=== PATIENT | female | born 1980 | race Caucasian/White ===

== ENCOUNTER 2016-07-30 14:19 | Emergency (ER) | payer OTHER ==
--- NOTE | 2016-07-30 16:02 | Emergency Department Report ---
Entered by JOHNIE MCFARLANE, acting as scribe for ELY RIVERA NP. Chief Complaint: Nausea/Vomiting/Diarrhea Stated Complaint: ABD PAIN/CRAMPS/VOMITING BLOOD Time Seen by Provider: 07/30/16 15:20 - HPI History of Present Illness: 36 y/o female presents c/o N/V/D that started yesterday. Sx include abd pain, hematemesis and cramping. She has Sx during menstrual cycle but Sx are worse this episode. LMP- currently on. no neuro or focal deficits NAD VSS Ambulatory states just about every month this is what happens - ROS Review of Systems: as noted in HPI - Exam Vital Signs: Vital Signs 07/30/16 15:13 Temperature 97.8 F Pulse Rate 61 Respiratory 20 Rate Blood Pressure 129/78 O2 Sat by Pulse 100 Oximetry Physical Exam: as noted in HPI MSE screening note: Focused history and physical exam performed. Due to findings the following was ordered: ED Disposition for MSE Condition: Stable This documentation as recorded by the scribe,JOHNIE MCFARLANE,accurately reflects the service I personally performed and the decisions made by me,ELY RIVERA NP.
[2016-07-30 16:24] LABS: Hematocrit 32.8 % (30.3-42.9); Mean Corpuscular HGB Conc 31 % (30-34); Mean Corpuscular Hemoglobin 22 pg (28-32); Mean Corpuscular Volume 70 fl (79-97); Red Blood Count 4.67 M/mm3 (3.65-5.03); Red Cell Distribution Width 23.1 % (13.2-15.2); White Blood Count 14.9 K/mm3 (4.5-11.0)
[2016-07-30 16:25] LABS: Basophils % (Auto) 0.6 % (0.0-1.8); Eosinophils % (Auto) 0.1 % (0.0-4.3); Platelet Count 306 K/mm3 (140-440)
[2016-07-30 16:37] LABS: Anion Gap 23 mmol/L; Blood Urea Nitrogen 7 mg/dL (7-17); Calcium 9.3 mg/dL (8.4-10.2); Carbon Dioxide 19 mmol/L (22-30); Glucose 117 mg/dL (65-100); Potassium 3.9 mmol/L (3.6-5.0); Sodium 139 mmol/L (137-145)
[2016-07-30 16:58] LABS: Alanine Aminotransferase 11 units/L (7-56); Albumin 4.1 g/dL (3.9-5); Albumin/Globulin Ratio 1.2 %; Alkaline Phosphatase 69 units/L (35-129); Amylase 76 units/L (27-131); Bilirubin,Total 0.4 mg/dL (0.1-1.2); Lipase 13 units/L (13-60); Total Protein 7.6 g/dL (6.3-8.2)
[2016-07-30 17:07] LABS: Bilirubin,Direct < 0.2 mg/dL (0-0.2); Bilirubin,Indirect 0.2 mg/dL
--- NOTE | 2016-07-30 19:06 | Emergency Department Report ---
Chief Complaint: Nausea/Vomiting/Diarrhea Stated Complaint: ABD PAIN/CRAMPS/VOMITING BLOOD Time Seen by Provider: 07/30/16 19:06 - HPI History of Present Illness: upset w wait explained process appreciative pt angry - Exam Vital Signs: Vital Signs 07/30/16 15:13 Temperature 97.8 F Pulse Rate 61 Respiratory 20 Rate Blood Pressure 129/78 O2 Sat by Pulse 100 Oximetry MSE screening note: Focused history and physical exam performed. Due to findings the following was ordered: ED Medical Decision Making - Lab Data Result diagrams: 07/30/16 Unknown 07/30/16 Unknown ED Disposition for MSE Condition: Stable Referrals: PRIMARY CARE, [Primary Care Provider] - 3-5 Days
[2016-07-30] MEDS ORDERED: NACL ONE (21:06)
[2016-07-30] MEDS ORDERED: NACL 0.9% 1000 ML 1,000 ML IV ONE (21:07)
[2016-07-30] MEDS ORDERED: DILAUDID IV ONE ×2 (21:07→22:56)
[2016-07-30] MEDS ORDERED: TORADOL IV ONE (21:07)
[2016-07-30] MEDS ORDERED: ZOFRAN IV ONE (21:07)
[2016-07-30] MEDS ORDERED: NACL 0.9% 1000 ML 1,000 ML ONE (21:08)
[2016-07-30] MEDS ORDERED: D5NS 1,000 ML IV SCH ×2 (22:00)
--- NOTE | 2016-07-30 22:10 | Cat Scan Report ---
FINAL REPORT PROCEDURE: CT ABDOMEN PELVIS W CON TECHNIQUE: Computerized axial tomography of the abdomen and pelvis was performed after the IV injection of iodinated nonionic contrast. HISTORY: generalized pain, n,v, max pain at lower abd COMPARISON: No prior studies are available for comparison. FINDINGS: Visualized lower thorax: No significant abnormality. Liver: Normal size and attenuation. Spleen: Normal size and attenuation. Gallbladder and biliary system: Normal. Pancreas: Normal. Adrenals: Normal. Kidneys: Normal. GI tract: Normal. Appendix is normal Lymph nodes and mesentery: Normal. Vasculature: Normal. Bladder: Normal. Reproductive organs: Multiple enhancing mass lesions are identified in the uterus largest measuring 5 centimeters x 4 centimeters. There are well-defined cystic lesions in bilateral adnexal regions measuring 6.1 x 3.6 centimeters on the left and 4.0 x 1.7 centimeters on the right. Peritoneum: No free fluid. Musculoskeletal structures: No significant abnormality. Other: None. IMPRESSION: Multiple mass lesions of the uterus are consistent with fibroids. Cystic lesions in bilateral adnexal regions most likely represent ovarian cysts. Ultrasound evaluation of the pelvis is recommended.
--- NOTE | 2016-07-30 22:28 | Emergency Department Report ---
ED Abdominal Pain HPI - General Chief Complaint: Nausea/Vomiting/Diarrhea Stated Complaint: ABD PAIN/CRAMPS/VOMITING BLOOD Time Seen by Provider: 07/30/16 21:00 Source: patient Mode of arrival: Ambulatory Limitations: No Limitations - History of Present Illness Initial Comments: 36-year-old female with no significant past medical history presents to Hospital complaining of lower abdominal pain, cramps, and nausea vomiting since last night. Patient states she started her menstrual cycle yesterday prior to symptom onset. She has painful periods with occasional nausea and vomiting but this is more severe. Pain today is rated 6-10/10 in intensity, constant, cramping, and worse with palpation. Patient states she was told she might have kidney stones or gallstones but no specific cause was found. No previous abdominal surgeries reported. Patient denies fever or diarrhea. Severity scale (0 -10): 9 - Related Data Previous Rx's Medication Instructions Recorded Last Taken Type HYDROcodone/APAP 5-325 [Accord 1 each PO Q6HR PRN #20 tablet 07/31/16 Unknown Rx 5/325] Ibuprofen [Motrin] 600 mg PO Q8H PRN #30 tablet 07/31/16 Unknown Rx metroNIDAZOLE [Flagyl] 500 mg PO Q12HR #14 tab 07/31/16 Unknown Rx Allergies Allergy/AdvReac Type Severity Reaction Status Date / Time No Known Allergies Allergy Unverified 07/30/16 15:13 ED Review of Systems ROS: Stated complaint: ABD PAIN/CRAMPS/VOMITING BLOOD Other details as noted in HPI Comment: All other systems reviewed and negative Other: Constitutional: No fevers chills Eyes: No eye pain visual changes ENT: No ear pain or throat pain Neck: Denies pain Respiratory: Denies cough wheezing shortness of breath Cardiovascular: Denies chest pain, palpitations, syncope GI: As per HPI : Denies dysuria Musculoskeletal: Denies back pain Skin: Denies rash, lesions, erythema Neurologic: Denies headache, numbness, weakness Psychiatric: Denies suicidal ideation, hallucinations ED Past Medical Hx - Past Medical History Previous Medical History?: Yes - Surgical History Past Surgical History?: Yes Additional Surgical History: Anal fissurectomy - Social History Smoking Status: Current Every Day Smoker Substance Use Type: Alcohol, Marijuana, Prescribed - Medications Home Medications: Home Medications Medication Instructions Recorded Confirmed Last Taken Type HYDROcodone/APAP 5-325 [Accord 1 each PO Q6HR PRN #20 tablet 07/31/16 Unknown Rx 5/325] Ibuprofen [Motrin] 600 mg PO Q8H PRN #30 tablet 07/31/16 Unknown Rx metroNIDAZOLE [Flagyl] 500 mg PO Q12HR #14 tab 07/31/16 Unknown Rx ED Physical Exam - General Limitations: No Limitations - Other Other exam information: General: No limitations, patient is alert in no acute distress Head exam: Atraumatic, normocephalic Eyes exam: Normal appearance ENT: Moist mucous membrane, normal oropharynx Neck exam: Normal inspection, full range of motion Respiratory exam: Clear to auscultation bilateral, no wheezes, rales, crackles Cardiovascular: Normal rate and rhythm, normal heart sounds Abdomen: Soft, nondistended, S tenderness greatest in the suprapubic area, with normal bowel sounds, no rebound, or guarding : Mild amount of blood intravaginal vault, no CMT or adnexal tenderness Extremity: Full range of motion normal inspection no deformity Back: Normal Inspection, full range of motion, no tenderness Neurologic: Alert, oriented x3, cranial nerves intact, no motor or sensory deficit Psychiatric: normal affect, normal mood Skin: Warm, dry, intact ED Course Vital Signs 07/30/16 07/30/16 07/30/16 15:13 20:29 20:30 Temperature 97.8 F Pulse Rate 61 Respiratory 20 Rate Blood Pressure 129/78 137/71 Blood Pressure [Left] O2 Sat by Pulse 100 100 100 Oximetry 07/30/16 07/30/16 07/30/16 20:41 20:50 20:51 Temperature 97.8 F Pulse Rate 74 Respiratory 19 Rate Blood Pressure 137/71 129/70 Blood Pressure 137/71 [Left] O2 Sat by Pulse 100 100 100 Oximetry 07/30/16 07/30/16 07/30/16 21:00 21:11 21:21 Temperature Pulse Rate Respiratory Rate Blood Pressure 127/68 127/68 127/75 Blood Pressure [Left] O2 Sat by Pulse 100 100 100 Oximetry 07/30/16 07/30/16 07/30/16 21:31 21:55 22:00 Temperature Pulse Rate Respiratory Rate Blood Pressure 104/52 102/54 99/54 Blood Pressure [Left] O2 Sat by Pulse 94 100 99 Oximetry 07/30/16 07/30/1617 22:11 22:21 22:30 Temperature Pulse Rate Respiratory Rate Blood Pressure 99/54 104/52 106/62 Blood Pressure [Left] O2 Sat by Pulse 100 100 100 Oximetry 07/30/16 23:02 Temperature Pulse Rate 69 Respiratory 18 Rate Blood Pressure Blood Pressure 107/64 [Left] O2 Sat by Pulse 100 Oximetry - Reevaluation(s) Reevaluation #1: 07/31/16 00:29 Improved after receiving Dilaudid, Zofran, and Toradol. D5NS 2 ordered as well ED Medical Decision Making - Lab Data Result diagrams: 07/30/16 Unknown 07/30/16 Unknown Lab Results 07/30/16 07/30/16 07/30/16 Range/Units 21:34 Unknown Unknown WBC 14.9 H (4.5-11.0) K/mm3 RBC 4.67 (3.65-5.03) M/mm3 Hgb 10.0 L (10.1-14.3) gm/dl Hct 32.8 (30.3-42.9) % MCV 70 L (79-97) fl MCH 22 L (28-32) pg MCHC 31 (30-34) % RDW 23.1 H (13.2-15.2) % Plt Count 306 (140-440) K/mm3 Lymph % (Auto) 8.6 L (13.4-35.0) % [place] % (Auto) 4.1 (0.0-7.3) % Eos % (Auto) 0.1 (0.0-4.3) % Baso % (Auto) 0.6 (0.0-1.8) % Lymph # 1.3 (1.2-5.4) K/mm3 [place] # 0.6 (0.0-0.8) K/mm3 Eos # 0.0 (0.0-0.4) K/mm3 Baso # 0.1 (0.0-0.1) K/mm3 Seg Neutrophils % 86.6 H (40.0-70.0) % Seg Neutrophils # 12.9 H (1.8-7.7) K/mm3 Sodium 139 (137-145) mmol/L Potassium 3.9 (3.6-5.0) mmol/L Chloride 101.0 (98-107) mmol/L Carbon Dioxide 19 L (22-30) mmol/L Anion Gap 23 mmol/L BUN 7 (7-17) mg/dL Creatinine 0.7 (0.7-1.2) mg/dL Estimated GFR > 60 ml/min BUN/Creatinine Ratio 10.00 % Glucose 117 H (65-100) mg/dL POC Glucose 219 H (70-105) Calcium 9.3 (8.4-10.2) mg/dL Total Bilirubin (0.1-1.2) mg/dL Direct Bilirubin (0-0.2) mg/dL Indirect Bilirubin mg/dL AST (5-40) units/L ALT (7-56) units/L Alkaline Phosphatase (35-129) units/L Total Protein (6.3-8.2) g/dL Albumin (3.9-5) g/dL Albumin/Globulin Ratio % Amylase (27-131) units/L Lipase (13-60) units/L HCG, Quant (0-4) mIU/mL 07/30/16 07/30/16 Range/Units Unknown Unknown WBC (4.5-11.0) K/mm3 RBC (3.65-5.03) M/mm3 Hgb (10.1-14.3) gm/dl Hct (30.3-42.9) % MCV (79-97) fl MCH (28-32) pg MCHC (30-34) % RDW (13.2-15.2) % Plt Count (140-440) K/mm3 Lymph % (Auto) (13.4-35.0) % [place] % (Auto) (0.0-7.3) % Eos % (Auto) (0.0-4.3) % Baso % (Auto) (0.0-1.8) % Lymph # (1.2-5.4) K/mm3 [place] # (0.0-0.8) K/mm3 Eos # (0.0-0.4) K/mm3 Baso # (0.0-0.1) K/mm3 Seg Neutrophils % (40.0-70.0) % Seg Neutrophils # (1.8-7.7) K/mm3 Sodium (137-145) mmol/L Potassium (3.6-5.0) mmol/L Chloride (98-107) mmol/L Carbon Dioxide (22-30) mmol/L Anion Gap mmol/L BUN (7-17) mg/dL Creatinine (0.7-1.2) mg/dL Estimated GFR ml/min BUN/Creatinine Ratio % Glucose (65-100) mg/dL POC Glucose (70-105) Calcium (8.4-10.2) mg/dL Total Bilirubin 0.4 (0.1-1.2) mg/dL Direct Bilirubin < 0.2 (0-0.2) mg/dL Indirect Bilirubin 0.2 mg/dL AST 19 (5-40) units/L ALT 11 (7-56) units/L Alkaline Phosphatase 69 (35-129) units/L Total Protein 7.6 (6.3-8.2) g/dL Albumin 4.1 (3.9-5) g/dL Albumin/Globulin Ratio 1.2 % Amylase 76 (27-131) units/L Lipase 13 (13-60) units/L HCG, Quant < 2 (0-4) mIU/mL wet prep: + bv, neg trich, neg yeast - Radiology Data Radiology results: report reviewed CT abdomen and pelvis IV contrast: Multiple uterine fibroids, ovarian cyst transvag/pelvic US: Multiple fibroids. Complex left ovarian cyst may have a small amount of proteinaceous debris measuring up to 4.8 cm. Follow-up pelvic ultrasounds just in the next 2 was to ensure stability versus resolution. Right ovary is grossly unremarkable. - Medical Decision Making Other differential: Dysmenorrhea Patient will be be discharged on treatment for bacterial vaginosis and assessment achievement for pain secondary to uterine fibroids and menstrual cycle. Follow-up will be encouraged given complex cyst and multiple uterine fibroids. Pt given copy of report for follow up - Differential Diagnosis gastroenteritis, appendicitis, UTI, ovarian cyst, , fibroids, Critical Care Time: No Critical care attestation.: If time is entered above; I have spent that time in minutes in the direct care of this critically ill patient, excluding procedure time. ED Disposition Clinical Impression: Dysmenorrhea, Complex cyst of left ovary, Uterine fibroid, Bacterial vaginosis Disposition: DISCHARGED TO HOME OR SELFCARE Is pt being admited?: No Does the pt Need Aspirin: No Condition: Stable Instructions: Bacterial Vaginosis (ED), Uterine Fibroids (ED), Ovarian Cyst (ED ), Dysmenorrhea (ED) Additional Instructions: Take the medication as prescribed. Return if symptoms worsen. Your gonorrhea and chlamydia tests are pending and take approximately 3-4 days result. You may obtain results in medical records with a photo ID. You may also obtain results through the follow-up doctor office via medical record request. It is very important that she will follow-up with her [employer] doctor regarding your fibroids and cysts so they can be monitored and treated as necessary. Prescriptions: HYDROcodone/APAP 5-325 [Accord 5/325] 1 each PO Q6HR PRN #20 tablet PRN Reason: Pain Ibuprofen [Motrin] 600 mg PO Q8H PRN #30 tablet PRN Reason: Pain metroNIDAZOLE [Flagyl] 500 mg PO Q12HR #14 tab Referrals: GERSON GLEASON MD [Staff Physician] - 3-5 Days ([employer]) Forms: [facility] Treatment and Prevention Time of Disposition: 01:23
--- NOTE | 2016-07-31 00:11 | Ultrasound Report ---
FINAL REPORT EXAM: US TRANSVAGINAL HISTORY: fibroids and ovarian cysts COMPARISON: CT of the abdomen and pelvis from the same date. TECHNIQUE: Several real-time grayscale and color Doppler images were obtained. Transabdominal and transvaginal exam. FINDINGS: Uterus measures 11.9 x 6.5 x 9.0 centimeters. Endometrial stripe measures 6 millimeters. There multiple uterine fibroids. At the fundal margin the uterus is a 3.9 x 3.7 x 4.4 centimeter exophytic fibroid. At the anterior body there are 2 fibroids measuring 2.3 x 2.9 x 2.2 centimeters and 1.4 x 1.2 x 1.9 centimeters. At the left body there is a 4.6 x 4.6 x 4.0 centimeter fibroid. No adnexal masses. Spectral analysis demonstrates arterial waveforms to the ovaries. The right ovary measures 3.7 x 1.9 x 2.4 centimeters. Left ovary measures 6.1 x 4.1 x 5.0 centimeters. Within the left ovary there is a mildly complex cyst measuring 4.8 x 3.3 x 4.1 centimeters. IMPRESSION: Multiple uterine fibroids. Complex left ovarian cyst which may have a small amount of proteinaceous debris measuring up to 4.8 centimeters. Followup pelvic ultrasound suggested in the next 2 months to ensure stability versus resolution. Right ovary is grossly unremarkable.
[2016-07-31] MEDS ORDERED: FLAGYL PO ONE (00:25)
[2016-07-31 00:49] LABS: Bacteria,Urine 1+ /HPF (Negative); Bilirubin,Urine NEG (Negative); Blood,Urine LG (Negative); Ketones,Urine NEG (Negative); Leukocyte Esterase,Urine NEG (Negative); Mucus,Urine FEW /HPF; Nitrite,Urine NEG (Negative); Protein,Urine <15 mg/dL mg/dL (Negative); Urobilinogen,Urine < 2.0 mg/dL (<2.0)
[2016-07-31 01:37] VITALS: BP 124/78
== END 2016-07-31 01:37 | disposition home or self-care (01) ==
LOC: ED 14:19
DX: N94.6 Dysmenorrhea, unspecified (principal); N83.292 Other ovarian cyst, left side; D25.9 Leiomyoma of uterus, unspecified; N76.0 Acute vaginitis; F17.200 Nicotine dependence, unspecified, uncomplicated; F12.10 Cannabis abuse, uncomplicated
CPT/HCPCS: 36415; 74177; 76830; 76856; 80048; 80074; 81001; 82150; 82962; 83690; 84702; 85025; 87210; 87591; 96361; 96374; 96375; 96376; 99285; J1170; J1885; J2405; J7030; J7042; Q9967